=== PATIENT | female | born 1935 | race Caucasian/White ===

== ENCOUNTER 2020-07-11 23:00 | Observation (INO) ==
[2020-07-11] MEDS ORDERED: SODIUM CHLORIDE 0.9% 1000ML 500 ML IV ONE (23:28)
--- NOTE | 2020-07-11 23:35 | Emergency Department Note ---
Impression & Plan Generalized weakness, Lactic acidosis, Rigors ED Provider Note Name: MADI MCCRARY Age: 85 Sex: F Arrives Via: Walk-In Informant: Patient, Daughter ED Provider: Epi Thomas MD Chief Complaint: Weakness Impression: Generalized Weakness Lactic Acidosis Rigors Medical Decision Making: Pleasant 85 yr old female with DMII, HTN, DLP, and mild dementia from out of town arrives for acute generalized weakness. She has associated substernal chest pain (now resolved), rigors, and fatigue. She notes on arrival and multiple evals no abdominal pain and repeat exams without TTP anywhere on abdomen. Chest pain seemed to be around time of rigors and was associated with vomiting once. On my evaluation, she has some some mild generalized weakness/fatigue and a right eyelid drop without facial weakness (attributed to striking self in head with cane yesterday accidentally). Vitals are normal. She is able to ambulate to bathroom with assistance and has no focal weakness. Without headache or other findings no indication for emergent neuro imaging. Wi th reported rigors sepsis work-up started and she was given fluids. Lactic acid elevated thus IV fluids further given. UA returned clear, cxr negative and continued just generalized weakness. COVID testing negative as well. She does appear improved with fluids though given lactic acidosis, along with other symptoms hospitalization seems reasonable. Triage/Nursing Notes reviewed by Me Additional history obtained from daughter Differentials:Infection, dehydration, metabolic abnormality, hypo/hyperglycemia, electrolyte disturbance, anemia, hypoxia, cardiac sources, intracerebral event, toxicologic, neurologic, as well as other pathologies. Vital Signs: reviewed and remarkable for no significant abnormalities Interventions: Saline lock, NSS bolus, Vanco/Cefepime IV Labs:Reviewed and remarkable for Lactic acidosis Imaging:X ray results are stated below per my interpretation: Chest: 1 view: No infiltrate, no effusion, normal cardiac border. EKG:Per My Interpretation: Indication Weakness: NSR 67 bpm, qtc 492, atrial sensed, ventricular paced. No Ectopy. No Ischemia. No previous for comparison Cardiac/Tele Monitoring: Cardiac Monitoring: An Order was placed for continuous cardiac monitoring. The monitor shows a rate of 60 with a normal sinus rhythm. Consults:Dr Anthony LEON Hospitalist Plan: Disposition:Hospitalization. Condition: Good Prescriptions:None PDMP: n/a History of Present Illness:85 yr old female with DMII, HTN, Dyslipidemia, arrives for evaluation of chest pain. Patient notes that she is visiting son and daughter in law for the week from [place]. She was doing well though this afternoon started complaining of exhaustion and weakness. She had several episodes of bilateral leg weakness. She noted that her legs just wouldn't work. This was followed by substernal lower chest pressure. She did vomit once. She also was noted to have shaking and chills. She has been back to normal since the drive in here. Daughter in law denies any focal weakness, slurred speech, syncope, falls, trauma. Patient without fevers, abdominal pain, back pain, urinary symptoms, diarrhea, leg swelling, rashes, headache, neck pain, nor other symptoms. No new medications. Denies cardiac history other than requiring pace maker several years ago. ROS: See above HPI for pertinent positives & negatives. A total of 10 systems reviewed and were otherwise negative. Past Medical History:HTN, DMII, Dyslipidemia, Mild dementia Past Surgical History:Pacemaker, Back Pain Family History:States she doesn't remember Social History:Lives alone, retired, no drugs/etoh/alcohol Home Medications:asa, lipitor, b12, donepezil, zetia, lisinopril, memantine, meformin, multivitamin, vit e Allergies:PNC (unknown) Vitals:Blood Pressure: 140/62, Pulse 70, RR 20, T 36.7C, O2 92% on RA Physical Exam: GENERAL: Patient is tired appearing and in no distress. EYES: No scleral icterus, unremarkable pupils. ENT: Mucous membranes dry, no nasal congestion. NECK: No masses appreciated, nomeningismus, trachea is midline. RESPIRATORY: No dyspnea. Clear to auscultation and equal bilaterally. No wheeze, no rhonchi. CARDIOVASCULAR: Regular rate and rhythm.No murmurs, rubs, gallops appreciated. GASTROINTESTINAL: Abdomen soft, non-tender, no peritonitis.Bowel sounds positive.No masses appreciated. BACK: No midline tenderness, no CVA tenderness EXTREMITIES: Normal motion all extremities, no cyanosis, no edema. NEUROLOGIC: Alert and oriented, no acute motor or sensory deficits, no focal weakness but is generally weak, cranial nerves grossly intact other than slight right eyelid droop (secondary to being hit by her cane accidentally yesterday which is confirmed by daughter) SKIN: No rash, no jaundice, no diaphoresis. PSYCH: Appropriate GCS: 15 ED Course: Times/Reassessments: Multiple, continued weakness though no overt other findings. Able to ambulate to bathroom with assistance, vitals stable. Agreeable to hospitalization Epi Thomas MD Past Med/Surg History Social History Smoking Status: Never smoker Hx Alcohol Use: No Hx Substance Use: No Preferred Language: Ukrainian Communication Ability: Effective Beliefs That Will Affect Care: None Current Living Situation: Alone Other Information That Helps Us Care for You: No Feels Safe at Home: Yes Safety Concerns: Feels Safe At This Time Assistive Devices: Glasses and Walker Allergies Allergies Allergy/AdvReac Type Severity Reaction Status Date / Time Penicillins Allergy Unknown Unknown Verified 07/12/20 00:33 Home Meds Home Medications Medication Instructions Recorded Confirmed aspirin [Aspir-Low] 81 mg PO HS 07/12/20 07/12/20 atorvastatin [Lipitor] 10 mg PO 2XWK 07/12/20 07/12/20 cyanocobalamin (vitamin B-12) 1,000 mcg PO DAILY 07/12/20 07/12/20 [Vitamin B-12] donepezil 10 mg PO HS 07/12/20 07/12/20 ezetimibe [Zetia] 10 mg PO HS 07/12/20 07/12/20 lisinopril 2.5 mg PO HS 07/12/20 07/12/20 memantine 5 mg PO HS 07/12/20 07/12/20 metformin 500 mg PO BID 07/12/20 07/12/20 multivitamin 1 tab PO DAILY 07/12/20 07/12/20 vitamin E [Vitamin E-400] 400 unit PO DAILY 07/12/20 07/12/20 Results & Data (ED) Vital Signs Vital Signs - 24 hr 07/11/20 23:06 07/11/20 23:20 07/11/20 23:45 Temperature 36.7 C Temperature Source Oral Pulse Rate 70 78 81 Pulse Rate [Apical] Pulse Rate from SpO2 Sensor 71 81 Pulse Rhythm [Apical] Pulse Strength [Apical] Respiratory Rate 20 24 25 H Respiratory Effort / Characteristics Non-Labored Spontaneous Respiratory Depth Normal Respiratory Pattern Regular Blood Pressure 140/62 138/62 Blood Pressure [Left Arm] Blood Pressure Mean 88 70 Blood Pressure Mean [Left Arm] Pulse Oximetry 92 98 96 Oxygen Delivery Method Room Air Sepsis Recent Fever Within 48 Hours No Sepsis New/Unexplained Change in Mental Status No Sepsis Action Taken by Nursing No Action Required 07/12/20 00:00 07/12/20 00:30 07/12/20 00:31 Temperature Temperature Source Pulse Rate 88 90 Pulse Rate [Apical] 80 Pulse Rate from SpO2 Sensor 76 83 Pulse Rhythm [Apical] Regular Pulse Strength [Apical] Normal Respiratory Rate 20 24 20 Respiratory Effort / Characteristics Non-Labored Respiratory Depth Normal Respiratory Pattern Blood Pressure 137/66 Blood Pressure [Left Arm] 137/66 Blood Pressure Mean 71 Blood Pressure Mean [Left Arm] 89 Pulse Oximetry 95 98 98 Oxygen Delivery Method Room Air Sepsis Recent Fever Within 48 Hours Sepsis New/Unexplained Change in Mental Status Sepsis Action Taken by Nursing 07/12/20 01:00 07/12/20 01:30 07/12/20 02:00 Temperature Temperature Source Pulse Rate 108 H 97 H 86 Pulse Rate [Apical] Pulse Rate from SpO2 Sensor 92 H 96 H 87 Pulse Rhythm [Apical] Pulse Strength [Apical] Respiratory Rate 20 15 22 Respiratory Effort / Characteristics Respiratory Depth Respiratory Pattern Blood Pressure 151/72 H 135/58 L 130/65 Blood Pressure [Left Arm] Blood Pressure Mean 101 77 80 Blood Pressure Mean [Left Arm] Pulse Oximetry 96 96 97 Oxygen Delivery Method Sepsis Recent Fever Within 48 Hours Sepsis New/Unexplained Change in Mental Status Sepsis Action Taken by Nursing 07/12/20 02:30 07/12/20 03:00 Temperature Temperature Source Pulse Rate 86 92 H Pulse Rate [Apical] Pulse Rate from SpO2 Sensor 85 90 Pulse Rhythm [Apical] Pulse Strength [Apical] Respiratory Rate 20 18 Respiratory Effort / Characteristics Respiratory Depth Respiratory Pattern Blood Pressure 132/59 L 138/66 Blood Pressure [Left Arm] Blood Pressure Mean 81 96 Blood Pressure Mean [Left Arm] Pulse Oximetry 96 99 Oxygen Delivery Method Sepsis Recent Fever Within 48 Hours Sepsis New/Unexplained Change in Mental Status Sepsis Action Taken by Nursing Laboratory Data Result diagrams: 07/11/20 23:25 07/11/20 23:25 Lab Results 07/11/20 07/11/20 07/11/20 Range/Units 23:25 23:25 23:25 WBC 6.46 (4.8-10.8) K/uL RBC 4.44 (4.2-5.4) M/uL Hgb 14.0 (12.0-16.0) g/dL Hct 43.9 (37-47) % MCV 98.9 (80-100) fL MCH 31.5 (25-34) pg MCHC 31.9 L (32-36) g/dL RDW Std Deviation 49.8 H (36.4-46.3) fL RDW Coeff of Maureen 13.8 (11.5-14.5) % Plt Count 231 (130-400) K/uL MPV 10.5 H (7.4-10.4) fL Immature Gran % (Auto) 0.2 % Neut % (Auto) 56.5 % Lymph % (Auto) 32.0 % Jefferson % (Auto) 9.6 % Eos % (Auto) 1.4 % Baso % (Auto) 0.3 % Neut # (Auto) 3.65 (1.4-6.5) K/uL Lymph # (Auto) 2.07 (1.2-3.4) K/uL Jefferson # (Auto) 0.62 H (0.11-0.59) K/uL Eos # (Auto) 0.09 (0-0.5) K/uL Baso # (Auto) 0.02 (0-0.2) K/uL Immature Gran # (Auto) 0.01 (0.00-0.02) K/uL ESR (0-21) mm/hr PT 9.9 (9.0-12.0) Seconds INR 0.9 (0.9-1.1) Sodium 142 (136-145) mmol/L Potassium 3.6 (3.5-5.1) mmol/L Chloride 107 (98-107) mmol/L Carbon Dioxide 28 (21-32) mmol/L Anion Gap 7.0 (3-11) BUN 21 H (7-18) mg/dl Creatinine 0.74 (0.6-1.2) mg/dl Est Cr Clr Drug Dosing 50.9 ml/min Est GFR ( Amer) 86.8 Est GFR (Non-Af Amer) 74.9 BUN/Creatinine Ratio 28.6 H (10-20) Glucose 118 H (70-99) mg/dl Lactate (0.4-2.0) mmol/L Calcium 9.8 (8.5-10.1) mg/dl Phosphorus (2.5-4.9) mg/dl Magnesium 2.3 (1.8-2.4) mg/dl Total Bilirubin 0.5 (0.2-1) mg/dl Direct Bilirubin 0.1 (0-0.2) mg/dl AST 34 (15-37) U/L ALT 16 (12-78) U/L Alkaline Phosphatase 77 (45-117) U/L Total Creatine Kinase 50 (26-192) U/L Troponin I < 0.015 (0-0.045) ng/ml C-Reactive Protein (0-0.29) mg/dl Total Protein 7.6 (6.4-8.2) gm/dl Albumin 3.9 (3.4-5.0) gm/dl Lipase 147 (73-393) U/L Urine Color Urine Appearance (Clear) Urine pH (4.5-7.5) Ur Specific Albers (1.000-1.030) Urine Protein (Negative) Urine Glucose (UA) (Negative) Urine Ketones (Negative) Urine Blood (Negative) Urine Nitrite (Negative) Urine Bilirubin (Negative) Urine Urobilinogen (Negative) Ur Leukocyte Esterase (Negative) COVID-19 Eval Order COVID-19 PCR (Negative) 07/11/20 07/12/20 07/12/20 Range/Units 23:25 00:02 00:02 WBC (4.8-10.8) K/uL RBC (4.2-5.4) M/uL Hgb (12.0-16.0) g/dL Hct (37-47) % MCV (80-100) fL MCH (25-34) pg MCHC (32-36) g/dL RDW Std Deviation (36.4-46.3) fL RDW Coeff of Maureen (11.5-14.5) % Plt Count (130-400) K/uL MPV (7.4-10.4) fL Immature Gran % (Auto) % Neut % (Auto) % Lymph % (Auto) % Jefferson % (Auto) % Eos % (Auto) % Baso % (Auto) % Neut # (Auto) (1.4-6.5) K/uL Lymph # (Auto) (1.2-3.4) K/uL Jefferson # (Auto) (0.11-0.59) K/uL Eos # (Auto) (0-0.5) K/uL Baso # (Auto) (0-0.2) K/uL Immature Gran # (Auto) (0.00-0.02) K/uL ESR 13 (0-21) mm/hr PT (9.0-12.0) Seconds INR (0.9-1.1) Sodium (136-145) mmol/L Potassium (3.5-5.1) mmol/L Chloride (98-107) mmol/L Carbon Dioxide (21-32) mmol/L Anion Gap (3-11) BUN (7-18) mg/dl Creatinine (0.6-1.2) mg/dl Est Cr Clr Drug Dosing ml/min Est GFR ( Amer) Est GFR (Non-Af Amer) BUN/Creatinine Ratio (10-20) Glucose (70-99) mg/dl Lactate 2.5 H* (0.4-2.0) mmol/L Calcium (8.5-10.1) mg/dl Phosphorus 2.8 (2.5-4.9) mg/dl Magnesium (1.8-2.4) mg/dl Total Bilirubin (0.2-1) mg/dl Direct Bilirubin (0-0.2) mg/dl AST (15-37) U/L ALT (12-78) U/L Alkaline Phosphatase (45-117) U/L Total Creatine Kinase (26-192) U/L Troponin I (0-0.045) ng/ml C-Reactive Protein < 0.29 (0-0.29) mg/dl Total Protein (6.4-8.2) gm/dl Albumin (3.4-5.0) gm/dl Lipase (73-393) U/L Urine Color Urine Appearance (Clear) Urine pH (4.5-7.5) Ur Specific Albers (1.000-1.030) Urine Protein (Negative) Urine Glucose (UA) (Negative) Urine Ketones (Negative) Urine Blood (Negative) Urine Nitrite (Negative) Urine Bilirubin (Negative) Urine Urobilinogen (Negative) Ur Leukocyte Esterase (Negative) COVID-19 Eval Order COVID-19 PCR (Negative) 07/12/20 07/12/20 07/12/20 Range/Units 00:20 01:19 01:40 WBC (4.8-10.8) K/uL RBC (4.2-5.4) M/uL Hgb (12.0-16.0) g/dL Hct (37-47) % MCV (80-100) fL MCH (25-34) pg MCHC (32-36) g/dL RDW Std Deviation (36.4-46.3) fL RDW Coeff of Maureen (11.5-14.5) % Plt Count (130-400) K/uL MPV (7.4-10.4) fL Immature Gran % (Auto) % Neut % (Auto) % Lymph % (Auto) % Jefferson % (Auto) % Eos % (Auto) % Baso % (Auto) % Neut # (Auto) (1.4-6.5) K/uL Lymph # (Auto) (1.2-3.4) K/uL Jefferson # (Auto) (0.11-0.59) K/uL Eos # (Auto) (0-0.5) K/uL Baso # (Auto) (0-0.2) K/uL Immature Gran # (Auto) (0.00-0.02) K/uL ESR (0-21) mm/hr PT (9.0-12.0) Seconds INR (0.9-1.1) Sodium (136-145) mmol/L Potassium (3.5-5.1) mmol/L Chloride (98-107) mmol/L Carbon Dioxide (21-32) mmol/L Anion Gap (3-11) BUN (7-18) mg/dl Creatinine (0.6-1.2) mg/dl Est Cr Clr Drug Dosing ml/min Est GFR ( Amer) Est GFR (Non-Af Amer) BUN/Creatinine Ratio (10-20) Glucose (70-99) mg/dl Lactate 2.0 (0.4-2.0) mmol/L Calcium (8.5-10.1) mg/dl Phosphorus (2.5-4.9) mg/dl Magnesium (1.8-2.4) mg/dl Total Bilirubin (0.2-1) mg/dl Direct Bilirubin (0-0.2) mg/dl AST (15-37) U/L ALT (12-78) U/L Alkaline Phosphatase (45-117) U/L Total Creatine Kinase (26-192) U/L Troponin I (0-0.045) ng/ml C-Reactive Protein (0-0.29) mg/dl Total Protein (6.4-8.2) gm/dl Albumin (3.4-5.0) gm/dl Lipase (73-393) U/L Urine Color Dark Yellow Urine Appearance Clear (Clear) Urine pH 7.0 (4.5-7.5) Ur Specific Albers 1.019 (1.000-1.030) Urine Protein Negative (Negative) Urine Glucose (UA) Negative (Negative) Urine Ketones Trace H (Negative) Urine Blood Negative (Negative) Urine Nitrite Negative (Negative) Urine Bilirubin Negative (Negative) Urine Urobilinogen Negative (Negative) Ur Leukocyte Esterase Negative (Negative) COVID-19 Eval Order Covid19 Done at [facility] COVID-19 PCR (Negative) 07/12/20 Range/Units 01:40 WBC (4.8-10.8) K/uL RBC (4.2-5.4) M/uL Hgb (12.0-16.0) g/dL Hct (37-47) % MCV (80-100) fL MCH (25-34) pg MCHC (32-36) g/dL RDW Std Deviation (36.4-46.3) fL RDW Coeff of Maureen (11.5-14.5) % Plt Count (130-400) K/uL MPV (7.4-10.4) fL Immature Gran % (Auto) % Neut % (Auto) % Lymph % (Auto) % Jefferson % (Auto) % Eos % (Auto) % Baso % (Auto) % Neut # (Auto) (1.4-6.5) K/uL Lymph # (Auto) (1.2-3.4) K/uL Jefferson # (Auto) (0.11-0.59) K/uL Eos # (Auto) (0-0.5) K/uL Baso # (Auto) (0-0.2) K/uL Immature Gran # (Auto) (0.00-0.02) K/uL ESR (0-21) mm/hr PT (9.0-12.0) Seconds INR (0.9-1.1) Sodium (136-145) mmol/L Potassium (3.5-5.1) mmol/L Chloride (98-107) mmol/L Carbon Dioxide (21-32) mmol/L Anion Gap (3-11) BUN (7-18) mg/dl Creatinine (0.6-1.2) mg/dl Est Cr Clr Drug Dosing ml/min Est GFR ( Amer) Est GFR (Non-Af Amer) BUN/Creatinine Ratio (10-20) Glucose (70-99) mg/dl Lactate (0.4-2.0) mmol/L Calcium (8.5-10.1) mg/dl Phosphorus (2.5-4.9) mg/dl Magnesium (1.8-2.4) mg/dl Total Bilirubin (0.2-1) mg/dl Direct Bilirubin (0-0.2) mg/dl AST (15-37) U/L ALT (12-78) U/L Alkaline Phosphatase (45-117) U/L Total Creatine Kinase (26-192) U/L Troponin I (0-0.045) ng/ml C-Reactive Protein (0-0.29) mg/dl Total Protein (6.4-8.2) gm/dl Albumin (3.4-5.0) gm/dl Lipase (73-393) U/L Urine Color Urine Appearance (Clear) Urine pH (4.5-7.5) Ur Specific Albers (1.000-1.030) Urine Protein (Negative) Urine Glucose (UA) (Negative) Urine Ketones (Negative) Urine Blood (Negative) Urine Nitrite (Negative) Urine Bilirubin (Negative) Urine Urobilinogen (Negative) Ur Leukocyte Esterase (Negative) COVID-19 Eval Order COVID-19 PCR NEGATIVE (Negative) Administered Medications Discontinued Medications Sodium Chloride (Nss 1000ml) 500 mls @ 999 mls/hr IV .Q31M ONE Stop: 07/11/20 23:58 Last Infusion: 07/12/20 00:21 Dose: 0 mls/hr Documented by: [id number] Admin: 07/11/20 23:43 Dose: 999 mls/hr Documented by: [id number] Sodium Chloride (Nss 1000ml) 1,000 mls @ 999 mls/hr IV .Q1H1M ONE Stop: 07/12/20 01:10 Last Infusion: 07/12/20 01:49 Dose: 0 mls/hr Documented by: [id number] Admin: 07/12/20 00:45 Dose: 999 mls/hr Documented by: [id number] Sodium Chloride (Nss 1000ml) 500 mls @ 999 mls/hr IV .Q31M ONE Stop: 07/12/20 00:40 Last Infusion: 07/12/20 00:45 Dose: 0 mls/hr Documented by: [id number] Admin: 07/12/20 00:21 Dose: 999 mls/hr Documented by: [id number] Cefepime HCl (Maxipime) 2,000 mg in 20 mls @ 5 mls/min IV NOW STA; Protocol Stop: 07/12/20 00:13 Last Admin: 07/12/20 00:24 Dose: 5 mls/min Documented by: [id number] Vancomycin HCl 1,000 mg/ (Sodium Chloride) 520 mls @ 200 mls/hr IV NOW ONE Stop: 07/12/20 02:45 Last Admin: 07/12/20 00:34 Dose: 200 mls/hr Documented by: [id number] Discharge Plan Visit Data Chief Complaint: Abdominal Pain Stated Complaint: CHEST PAIN, VOMIT, WEAKNESS ED Provider: Epi Thomas Discharge Problem: Generalized weakness, Lactic acidosis, Rigors Patient Disposition: Admitted As Inpatient Discharge Instructions Interventions: ED Discharge Assessment Last Done: 07/12/20 03:47
[2020-07-11 23:41] LABS: Basophils # (auto) 0.02 K/uL (0-0.2); Basophils % (auto) 0.3 %; Eosinophils # (auto) 0.09 K/uL (0-0.5); Eosinophils % (auto) 1.4 %; Hematocrit (blood only) 43.9 % (37-47); Immature Granulocytes # (auto) 0.01 K/uL (0.00-0.02); Immature Granulocytes % (auto) 0.2 %; Lymphocytes # (auto) 2.07 K/uL (1.2-3.4); Mean Corpuscular Hemoglobin 31.5 pg (25-34); Mean Corpuscular Hgb Conc 31.9 g/dL (32-36); Mean Corpuscular Volume 98.9 fL (80-100); Mean Platelet Volume 10.5 fL (7.4-10.4); Monocytes # (auto) 0.62 K/uL (0.11-0.59); Monocytes % (auto) 9.6 %; Neutrophils # (auto) 3.65 K/uL (1.4-6.5); Neutrophils % (auto) 56.5 %; Platelet Count 231 K/uL (130-400); RDW Coefficient of Variation 13.8 % (11.5-14.5); RDW Standard Deviation 49.8 fL (36.4-46.3); Red Blood Count 4.44 M/uL (4.2-5.4); White Blood Count 6.46 K/uL (4.8-10.8)
[2020-07-11 23:52] LABS: INR 0.9 (0.9-1.1); Prothrombin Time 9.9 Seconds (9.0-12.0)
[2020-07-12 00:04] LABS: Alanine Aminotransferase 16 U/L (12-78); Albumin Level 3.9 gm/dl (3.4-5.0); Aspartate Aminotransferase 34 U/L (15-37); BUN Creatinine Ratio 28.6 (10-20); Bilirubin Direct 0.1 mg/dl (0-0.2); Blood Urea Nitrogen 21 mg/dl (7-18); Calcium 9.8 mg/dl (8.5-10.1); Carbon Dioxide 28 mmol/L (21-32); Chloride 107 mmol/L (98-107); Creatinine Clr Calc Pharmacy 50.9 ml/min; Est GFR (African American) 86.8; Est GFR (Non-African American) 74.9; Glucose 118 mg/dl (70-99); Lipase 147 U/L (73-393); Magnesium 2.3 mg/dl (1.8-2.4); Potassium 3.6 mmol/L (3.5-5.1); Sodium 142 mmol/L (136-145)
[2020-07-12 00:07] LABS: Alkaline Phosphatase 77 U/L (45-117); Bilirubin,Total 0.5 mg/dl (0.2-1); Creatine Kinase 50 U/L (26-192); Total Protein 7.6 gm/dl (6.4-8.2); Troponin I < 0.015 ng/ml (0-0.045)
[2020-07-12] MEDS ORDERED: CEFEPIME 2,000 MG/20 ML VIAL IV STA (00:10)
[2020-07-12] MEDS ORDERED: VANCOMYCIN HCL 1,000 MG in SODIUM CHLORIDE 0.9% 500 ML IV ONE (00:10)
[2020-07-12] MEDS ORDERED: SODIUM CHLORIDE 0.9% 1000ML 500 ML IV ONE (00:10)
[2020-07-12] MEDS ORDERED: SODIUM CHLORIDE 0.9% 1000ML 1,000 ML IV ONE (00:10)
[2020-07-12] MEDS ORDERED: VANCOMYCIN CONSULT ACTIVE PRN (00:10)
[2020-07-12 00:45] LABS: Appearance Urine Clear (Clear); Bilirubin Urine Negative (Negative); Blood Urine Negative (Negative); Color Urine Dark Yellow; Glucose Urine UA Negative (Negative); Ketones Urine Trace (Negative); Leukocyte Esterase Urine Negative (Negative); Nitrite Urine Negative (Negative); Protein Urine Negative (Negative); Specific Gravity Urine 1.019 (1.000-1.030); Urobilinogen Urine Negative (Negative)
--- NOTE | 2020-07-12 03:17 | History & Physical Report ---
Date of Service July 12, 2020 Assessment & Plan (1) Generalized weakness: Etiology uncertain. No focal weakness or deficits noted on exam. Electrolytes and ESR/CRP WNL. Patient currently afebrile, HD stable, non-toxic in appearance. Symptoms have resolved. -Continue gentle IV hydration Present on Admission?: Yes (2) Hyperlipidemia: Chronic. -Continue Atorvastatin and Ezetimibe Present on Admission?: Yes (3) Diabetes: Chronic. Stable -Hold oral agents while inpatient. ?if Metformin + mild volume contraction contributed to elevated lactic acid -ISS -Goal blood sugar 100 - 140 Present on Admission?: Yes (4) Hypertension: Blood pressure favorable -Continue Lisinopril -Continue to monitor Present on Admission?: Yes (5) Lactic acidosis: Patient with mildly elevated lactic acid level of 2.5 on arrival + abdominal pain. Lactate has improved to 2 after IVF. She is afebrile, HD stable and non-toxic in appearance at present. She received 3L NSS in the ER as well as empiric antibiotics -Continue fluids as above. -Follow culture results -Will hold off on additional antibiotics at this time Present on Admission?: Yes (6) Abdominal pain: Very mild LLQ abdominal pain. If pain persists or worsens would pursue additional imaging F/E/N - LR at 80mL/hr x 1 L, electrolytes WNL, CC/AHA diet as tolerated Ppx - Low risk for DVT Code - Full Dispo - Observation to medical Present on Admission?: Yes History of Present Illness Chief Complaint: weakness, epigastric discomfort Primary Care Provider: MIMA TELLEZ LAZAROGISSELLE Lorrie Bee is a pleasant 85yo female with history of HTN, DM, HLP presenting with epigastric discomfort, nausea/vomiting, rigors and weakness. The patient resides in [place], [place] and sees a PCP regularly there. She is currently visiting her daughter. She had some mild leg weakness earlier today. However, this evening around 22:00 she developed epigastric discomfort as well as worsening weakness, nausea/vomiting and rigors. No additional complaints at this time. Her pain has resolved. Some mild left sided abdominal pain persists. ER Course: Cefepime, Vancomycin, NSS x 2l Allergies Allergy/AdvReac Type Severity Reaction Status Date / Time Penicillins Allergy Unknown Unknown Verified 07/12/20 00:33 Home Medications Home Medications Medication Instructions Recorded Confirmed Type aspirin [Aspir-Low] 81 mg PO HS 10/20/20 10/20/20 History atorvastatin [Lipitor] 10 mg PO 2XWK 07/12/20 07/12/20 History cyanocobalamin (vitamin B-12) 1,000 mcg PO DAILY 07/12/20 07/12/20 History [Vitamin B-12] donepezil 10 mg PO HS 07/12/20 07/12/20 History ezetimibe [Zetia] 10 mg PO HS 07/12/20 07/12/20 History lisinopril 2.5 mg PO HS 07/12/20 07/12/20 History memantine 5 mg PO HS 07/12/20 07/12/20 History metformin 500 mg PO BID 07/12/20 07/12/20 History multivitamin 1 tab PO DAILY 07/12/20 07/12/20 History vitamin E [Vitamin E-400] 400 unit PO DAILY 07/12/20 07/12/20 History Past Med/Surg History Medical History (Updated 07/12/20 @ 05:59 by Cristela Cruz DO) Diabetes History of pacemaker Hyperlipidemia Hypertension Family History (Updated 07/12/20 @ 05:46 by Cristela Cruz DO) Other Family history non-contributory Social History Smoking Status: Never smoker Hx Alcohol Use: No Hx Substance Use: No Preferred Language: Martiniquais Communication Ability: Effective Beliefs That Will Affect Care: None Current Living Situation: Alone Other Information That Helps Us Care for You: No Feels Safe at Home: Yes Safety Concerns: Feels Safe At This Time Assistive Devices: Glasses and Walker Review of Systems Review of Systems: All systems reviewed & are unremarkable except as noted in HPI & below Physical Exam Physical Exam: General: patient resting comfortably, NAD, non-toxic in appearance, AA&O x 4 Skin: warm, dry, intact, no rashes or lesions HEENT: NC/AT, PERRL, EOMI, anicteric sclera, conjunctiva without injection, external ear normal to inspection and nontender, nares patent, moist mucus membranes, dentition intact, no oropharyngeal lesions, neck supple, trachea midline, no LAD, no thyromegaly, no JVD Heart: +S1/S2, regular, no m/r/g Lungs: equal air entry bilaterally, no rales/rhonchi/wheezes Abd: +BS, soft, ND, mild LLE discomfort with deep palpation without rebound/guarding/peritoneal signs, no masses/organomegaly/ascites Ext: warm, 2+ pulses in UE/LE bilaterally, no clubbing/cyanosis or edema Neuro: nonfocal, patient AA&O x 4, speech intact, no facial droop, moving all extremities on command with equal strength 5/5 Results & Data Results & Data ([facility]) Vital Signs (Past 12 Hours) Vital Signs Temp Pulse Pulse Resp BP BP Pulse Ox 07/12/20 03:00 92 H 18 138/66 99 07/12/20 02:30 86 20 132/59 L 96 07/12/20 02:00 86 22 130/65 97 07/12/20 01:30 97 H 15 135/58 L 96 07/12/20 01:00 108 H 20 151/72 H 96 07/12/20 00:31 80 20 137/66 98 07/12/20 00:30 90 24 137/66 98 07/12/20 00:00 88 20 95 07/11/20 23:45 81 25 H 96 07/11/20 23:20 78 24 138/62 98 07/11/20 23:06 36.7 C 70 20 140/62 92 Laboratory Results Lab Results 07/11/20 07/11/20 07/11/20 Range/Units 23:25 23:25 23:25 WBC 6.46 (4.8-10.8) K/uL RBC 4.44 (4.2-5.4) M/uL Hgb 14.0 (12.0-16.0) g/dL Hct 43.9 (37-47) % MCV 98.9 (80-100) fL MCH 31.5 (25-34) pg MCHC 31.9 L (32-36) g/dL RDW Std Deviation 49.8 H (36.4-46.3) fL RDW Coeff of Maureen 13.8 (11.5-14.5) % Plt Count 231 (130-400) K/uL MPV 10.5 H (7.4-10.4) fL Immature Gran % (Auto) 0.2 % Neut % (Auto) 56.5 % Lymph % (Auto) 32.0 % [place] % (Auto) 9.6 % Eos % (Auto) 1.4 % Baso % (Auto) 0.3 % Neut # (Auto) 3.65 (1.4-6.5) K/uL Lymph # (Auto) 2.07 (1.2-3.4) K/uL [place] # (Auto) 0.62 H (0.11-0.59) K/uL Eos # (Auto) 0.09 (0-0.5) K/uL Baso # (Auto) 0.02 (0-0.2) K/uL Immature Gran # (Auto) 0.01 (0.00-0.02) K/uL ESR (0-21) mm/hr PT 9.9 (9.0-12.0) Seconds INR 0.9 (0.9-1.1) Sodium 142 (136-145) mmol/L Potassium 3.6 (3.5-5.1) mmol/L Chloride 107 (98-107) mmol/L Carbon Dioxide 28 (21-32) mmol/L Anion Gap 7.0 (3-11) BUN 21 H (7-18) mg/dl Creatinine 0.74 (0.6-1.2) mg/dl Est Cr Clr Drug Dosing 50.9 ml/min Est GFR ( Amer) 86.8 Est GFR (Non-Af Amer) 74.9 BUN/Creatinine Ratio 28.6 H (10-20) Glucose 118 H (70-99) mg/dl Lactate (0.4-2.0) mmol/L Calcium 9.8 (8.5-10.1) mg/dl Phosphorus (2.5-4.9) mg/dl Magnesium 2.3 (1.8-2.4) mg/dl Total Bilirubin 0.5 (0.2-1) mg/dl Direct Bilirubin 0.1 (0-0.2) mg/dl AST 34 (15-37) U/L ALT 16 (12-78) U/L Alkaline Phosphatase 77 (45-117) U/L Total Creatine Kinase 50 (26-192) U/L Troponin I < 0.015 (0-0.045) ng/ml C-Reactive Protein (0-0.29) mg/dl Total Protein 7.6 (6.4-8.2) gm/dl Albumin 3.9 (3.4-5.0) gm/dl Lipase 147 (73-393) U/L Urine Color Urine Appearance (Clear) Urine pH (4.5-7.5) Ur Specific Kiester (1.000-1.030) Urine Protein (Negative) Urine Glucose (UA) (Negative) Urine Ketones (Negative) Urine Blood (Negative) Urine Nitrite (Negative) Urine Bilirubin (Negative) Urine Urobilinogen (Negative) Ur Leukocyte Esterase (Negative) COVID-19 Eval Order COVID-19 PCR (Negative) 07/11/20 07/12/20 07/12/20 Range/Units 23:25 00:02 00:02 WBC (4.8-10.8) K/uL RBC (4.2-5.4) M/uL Hgb (12.0-16.0) g/dL Hct (37-47) % MCV (80-100) fL MCH (25-34) pg MCHC (32-36) g/dL RDW Std Deviation (36.4-46.3) fL RDW Coeff of Maureen (11.5-14.5) % Plt Count (130-400) K/uL MPV (7.4-10.4) fL Immature Gran % (Auto) % Neut % (Auto) % Lymph % (Auto) % [place] % (Auto) % Eos % (Auto) % Baso % (Auto) % Neut # (Auto) (1.4-6.5) K/uL Lymph # (Auto) (1.2-3.4) K/uL [place] # (Auto) (0.11-0.59) K/uL Eos # (Auto) (0-0.5) K/uL Baso # (Auto) (0-0.2) K/uL Immature Gran # (Auto) (0.00-0.02) K/uL ESR 13 (0-21) mm/hr PT (9.0-12.0) Seconds INR (0.9-1.1) Sodium (136-145) mmol/L Potassium (3.5-5.1) mmol/L Chloride (98-107) mmol/L Carbon Dioxide (21-32) mmol/L Anion Gap (3-11) BUN (7-18) mg/dl Creatinine (0.6-1.2) mg/dl Est Cr Clr Drug Dosing ml/min Est GFR ( Amer) Est GFR (Non-Af Amer) BUN/Creatinine Ratio (10-20) Glucose (70-99) mg/dl Lactate 2.5 H* (0.4-2.0) mmol/L Calcium (8.5-10.1) mg/dl Phosphorus 2.8 (2.5-4.9) mg/dl Magnesium (1.8-2.4) mg/dl Total Bilirubin (0.2-1) mg/dl Direct Bilirubin (0-0.2) mg/dl AST (15-37) U/L ALT (12-78) U/L Alkaline Phosphatase (45-117) U/L Total Creatine Kinase (26-192) U/L Troponin I (0-0.045) ng/ml C-Reactive Protein < 0.29 (0-0.29) mg/dl Total Protein (6.4-8.2) gm/dl Albumin (3.4-5.0) gm/dl Lipase (73-393) U/L Urine Color Urine Appearance (Clear) Urine pH (4.5-7.5) Ur Specific Kiester (1.000-1.030) Urine Protein (Negative) Urine Glucose (UA) (Negative) Urine Ketones (Negative) Urine Blood (Negative) Urine Nitrite (Negative) Urine Bilirubin (Negative) Urine Urobilinogen (Negative) Ur Leukocyte Esterase (Negative) COVID-19 Eval Order COVID-19 PCR (Negative) 07/12/20 07/12/20 07/12/20 Range/Units 00:20 01:19 01:40 WBC (4.8-10.8) K/uL RBC (4.2-5.4) M/uL Hgb (12.0-16.0) g/dL Hct (37-47) % MCV (80-100) fL MCH (25-34) pg MCHC (32-36) g/dL RDW Std Deviation (36.4-46.3) fL RDW Coeff of Maureen (11.5-14.5) % Plt Count (130-400) K/uL MPV (7.4-10.4) fL Immature Gran % (Auto) % Neut % (Auto) % Lymph % (Auto) % [place] % (Auto) % Eos % (Auto) % Baso % (Auto) % Neut # (Auto) (1.4-6.5) K/uL Lymph # (Auto) (1.2-3.4) K/uL [place] # (Auto) (0.11-0.59) K/uL Eos # (Auto) (0-0.5) K/uL Baso # (Auto) (0-0.2) K/uL Immature Gran # (Auto) (0.00-0.02) K/uL ESR (0-21) mm/hr PT (9.0-12.0) Seconds INR (0.9-1.1) Sodium (136-145) mmol/L Potassium (3.5-5.1) mmol/L Chloride (98-107) mmol/L Carbon Dioxide (21-32) mmol/L Anion Gap (3-11) BUN (7-18) mg/dl Creatinine (0.6-1.2) mg/dl Est Cr Clr Drug Dosing ml/min Est GFR ( Amer) Est GFR (Non-Af Amer) BUN/Creatinine Ratio (10-20) Glucose (70-99) mg/dl Lactate 2.0 (0.4-2.0) mmol/L Calcium (8.5-10.1) mg/dl Phosphorus (2.5-4.9) mg/dl Magnesium (1.8-2.4) mg/dl Total Bilirubin (0.2-1) mg/dl Direct Bilirubin (0-0.2) mg/dl AST (15-37) U/L ALT (12-78) U/L Alkaline Phosphatase (45-117) U/L Total Creatine Kinase (26-192) U/L Troponin I (0-0.045) ng/ml C-Reactive Protein (0-0.29) mg/dl Total Protein (6.4-8.2) gm/dl Albumin (3.4-5.0) gm/dl Lipase (73-393) U/L Urine Color Dark Yellow Urine Appearance Clear (Clear) Urine pH 7.0 (4.5-7.5) Ur Specific Kiester 1.019 (1.000-1.030) Urine Protein Negative (Negative) Urine Glucose (UA) Negative (Negative) Urine Ketones Trace H (Negative) Urine Blood Negative (Negative) Urine Nitrite Negative (Negative) Urine Bilirubin Negative (Negative) Urine Urobilinogen Negative (Negative) Ur Leukocyte Esterase Negative (Negative) COVID-19 Eval Order Covid19 Done at [facility] COVID-19 PCR (Negative) 07/12/20 Range/Units 01:40 WBC (4.8-10.8) K/uL RBC (4.2-5.4) M/uL Hgb (12.0-16.0) g/dL Hct (37-47) % MCV (80-100) fL MCH (25-34) pg MCHC (32-36) g/dL RDW Std Deviation (36.4-46.3) fL RDW Coeff of Maureen (11.5-14.5) % Plt Count (130-400) K/uL MPV (7.4-10.4) fL Immature Gran % (Auto) % Neut % (Auto) % Lymph % (Auto) % [place] % (Auto) % Eos % (Auto) % Baso % (Auto) % Neut # (Auto) (1.4-6.5) K/uL Lymph # (Auto) (1.2-3.4) K/uL [place] # (Auto) (0.11-0.59) K/uL Eos # (Auto) (0-0.5) K/uL Baso # (Auto) (0-0.2) K/uL Immature Gran # (Auto) (0.00-0.02) K/uL ESR (0-21) mm/hr PT (9.0-12.0) Seconds INR (0.9-1.1) Sodium (136-145) mmol/L Potassium (3.5-5.1) mmol/L Chloride (98-107) mmol/L Carbon Dioxide (21-32) mmol/L Anion Gap (3-11) BUN (7-18) mg/dl Creatinine (0.6-1.2) mg/dl Est Cr Clr Drug Dosing ml/min Est GFR ( Amer) Est GFR (Non-Af Amer) BUN/Creatinine Ratio (10-20) Glucose (70-99) mg/dl Lactate (0.4-2.0) mmol/L Calcium (8.5-10.1) mg/dl Phosphorus (2.5-4.9) mg/dl Magnesium (1.8-2.4) mg/dl Total Bilirubin (0.2-1) mg/dl Direct Bilirubin (0-0.2) mg/dl AST (15-37) U/L ALT (12-78) U/L Alkaline Phosphatase (45-117) U/L Total Creatine Kinase (26-192) U/L Troponin I (0-0.045) ng/ml C-Reactive Protein (0-0.29) mg/dl Total Protein (6.4-8.2) gm/dl Albumin (3.4-5.0) gm/dl Lipase (73-393) U/L Urine Color Urine Appearance (Clear) Urine pH (4.5-7.5) Ur Specific Kiester (1.000-1.030) Urine Protein (Negative) Urine Glucose (UA) (Negative) Urine Ketones (Negative) Urine Blood (Negative) Urine Nitrite (Negative) Urine Bilirubin (Negative) Urine Urobilinogen (Negative) Ur Leukocyte Esterase (Negative) COVID-19 Eval Order COVID-19 PCR NEGATIVE (Negative) Code Status & VTE Plan Code Status FULL VTE Prophylaxis Plan VTE Prophylaxis will be ordered: Yes PG Care Time/CCT Total # of Minutes Spent Total Time Spent with Patient: Total time spent is greater than 50% in coordination of care (as documented) at patient's floor/unit and/or counseling patient: Coding Level of Care Code 07665 OBS Care - Level 3 Diagnoses Generalized weakness R53.1 Hyperlipidemia E78.5 Hyperlipidemia type: unspecified Diabetes E11.9 Diabetes mellitus type: type 2 Diabetes mellitus terminal make up operator insulin use: without terminal make up operator use Diabetes mellitus complication status: without complication Hypertension I10 Hypertension type: essential hypertension Lactic acidosis E87.2 Abdominal pain R10.30 Abdominal location: lower abdomen, unspecified (1) Hyperlipidemia Hyperlipidemia type: unspecified Qualified Code(s): E78.5 - Hyperlipidemia, unspecified (2) Diabetes Diabetes mellitus type: type 2 Diabetes mellitus terminal make up operator insulin use: without terminal make up operator use Diabetes mellitus complication status: without complication Qualified Code(s): E11.9 - Type 2 diabetes mellitus without complications (3) Hypertension Hypertension type: essential hypertension Qualified Code(s): I10 - Essential (primary) hypertension (4) Abdominal pain Abdominal location: lower abdomen, unspecified Qualified Code(s): R10.30 - Lower abdominal pain, unspecified
[2020-07-12] MEDS ORDERED: GLUCAGON FOR INJ 1 MG VIAL SQ PRN (04:09)
[2020-07-12] MEDS ORDERED: ONDANSETRON INJ 2 MG/ML 2 ML VIAL IV PRN (04:09)
[2020-07-12] MEDS ORDERED: GLUCOSE 40% GEL 15 GM TUBE PO PRN (04:09)
[2020-07-12] MEDS ORDERED: DEXTROSE 50% 50 ML SYRINGE IV PRN (04:09)
[2020-07-12] MEDS ORDERED: GLUCOSE 10 TABS/TUBE PO PRN (04:09)
[2020-07-12] MEDS ORDERED: CARBOHYDRATES FOR HYPOGLYCEMIA PO PRN (04:09)
[2020-07-12] MEDS ORDERED: LACTATED RINGER'S 1,000 ML IV SCH (04:09)
[2020-07-12] MEDS ORDERED: ACETAMINOPHEN 325 MG TAB PO PRN (04:09)
[2020-07-12 04:30] LABS: C Reactive Protein < 0.29 mg/dl (0-0.29); Phosphorus 2.8 mg/dl (2.5-4.9)
--- NOTE | 2020-07-12 07:26 | XRay Report ---
XR chest 1V portable CLINICAL HISTORY: sepsis COMPARISON STUDY: No previous studies for comparison. FINDINGS: There is a left subclavian dual-chamber central venous pacemaker present. The cardiac and m ediastinal contours are normal. There is no focal pulmonary consolidation. There is no failure. There are no pleural effusions. There is no pneumothorax.[ IMPRESSION: No active disease in the chest. ACT 112: Negative or not required by law. Electronically signed by: Terry Linares M.D. 07/12/2020 7:25 AM
[2020-07-12] MEDS: INSULIN ASPART 100 UNITS/ML 3 ML PEN SC SCH ×2 (09:14→13:22)
--- NOTE | 2020-07-12 09:50 | Electrocardiogram Report ---
Test Reason : Blood Pressure : / mmHG Vent. Rate : 067 BPM Atrial Rate : 067 BPM P-R Int : 174 ms QRS Dur : 150 ms QT Int : 466 ms P-R-T Axes : 059 099 058 degrees QTc Int : 492 ms Poor data quality, interpretation may be adversely affected Atrial-sensed ventricular-paced rhythm Abnormal ECG No previous ECGs available Confirmed by Sudheer Almanzar ([id number]) on 07/12/2020 9:50:13 AM Referred By: REFERRED SELF Confirmed By:Sudheer Almanzar
--- NOTE | 2020-07-12 17:03 | Discharge Summary ---
Date of Service July 12, 2020 Admission HPI Per Admitting Provider Lorrie Bee is a pleasant 85yo female with history of HTN, DM, HLD presenting with epigastric discomfort, nausea/vomiting, rigors and weakness. The patient resides in [place], [place] and sees a PCP regularly there. She is currently visiting her daughter. She had some mild leg weakness earlier today. However, this evening around 22:00 she developed epigastric discomfort as well as worsening weakness, nausea/vomiting and rigors. No additional complaints at this time. Her pain has resolved. Some mild left sided abdominal pain persists. ER Course: Cefepime, Vancomycin, NSS x 2l Admission Exam Per Admitting Provider General: patient resting comfortably, NAD, non-toxic in appearance, AA&O x 4 Skin: warm, dry, intact, no rashes or lesions HEENT: NC/AT, PERRL, EOMI, anicteric sclera, conjunctiva without injection, external ear normal to inspection and nontender, nares patent, moist mucus membranes, dentition intact, no oropharyngeal lesions, neck supple, trachea midline, no LAD, no thyromegaly, no JVD Heart: +S1/S2, regular, no m/r/g Lungs: equal air entry bilaterally, no rales/rhonchi/wheezes Abd: +BS, soft, ND, mild LLE discomfort with deep palpation without rebound/guarding/peritoneal signs, no masses/organomegaly/ascites Ext: warm, 2+ pulses in UE/LE bilaterally, no clubbing/cyanosis or edema Neuro: nonfocal, patient AA&O x 4, speech intact, no facial droop, moving all extremities on command with equal strength 5/5 Principal Diagnosis gastritis Discharge Exam Constitutional well developed and + thin; no acute distress Eyes PERRL, conjunctivae normal, anicteric sclerae ENMT external ear and nose normal, oropharynx normal Respiratory normal respiratory effort, lungs clear to auscultation Cardiovascular RRR, no murmur, no edema Gastrointestinal (Abdomen) normal bowel sounds, soft, nontender, no hepatosplenomegaly Musculoskeletal no cyanosis or clubbing Skin no rashes, warm and dry Psychiatric A+Ox3, euthymic affect forgetful of things such as her meals yesterday, and does not recall having symptoms yesterday Discharge Data Allergies Allergy/AdvReac Type Severity Reaction Status Date / Time Penicillins Allergy Unknown Unknown Verified 07/12/20 00:33 Consultations 07/12/20 01:05 ED Decision to Admit Stat Hospital Course (1) Abdominal pain: 85 yo F PMHx symptomatic bradycardia s/p pacemaker, HTN, DM2, HLD, dementia admitted for continued evaluation of abdominal pain, weakness, and vomiting per family. Abdominal pain/vomiting: Likely sec to ? viral gastritis - Per family patient had episode of vomiting yesterday after having fish tacos with some salsa, some cookies, and a hot chocolate. - Evaluation on site including LFTs, renal function, lipase, troponin x2, urinalysis, all normal. - Initial lactate 2.5 on admission in the setting of suspected dehydration from vomiting and poor eating at home. - Per family patient forgets to eat when she is at home by herself. They have been trying to get her to move in with them for some time. - Returned to normal level after several fluid boluses. - No leukocytosis, no electrolyte abnormalities. - CXR negative for pneumonia. - This AM without complaints of abdominal pain or nausea, and walked without assistance from nursing staff with a walker this AM. - Was urged to walk with walker at home, and also urged to seek help from her family regarding her care moving forward. DM2: - Continue metformin 500mg BID. HLD: - Continue atorvastatin twice weekly. HTN: - Continue lisinopril 2.5mg daily. Dementia: - Continue donepezil. Dispo: to son and [id number] home for care following discharge (2) Hyperlipidemia: (3) Diabetes: (4) Hypertension: (5) Dementia: Total Time Total Time Spent Total Time Spent (In Minutes): see attending attestation Discharge Plan Discharge Items Patient Disposition: Home - Self-Care Reason For Visit: WEAKNESS Discharge Diagnosis: abdominal pain and nausea Activity: Per Instructions section Non-emergency contact: Primary Care Provider Call non-emergency contact if: your symptoms worsen and your temperature is above 101 Follow-up/Referrals: Michael Gee DO [Primary Care Provider] - Diet: Carb Consistent or DM2 and Heart Healthy Addtl Attending Provider Instructions: You were admitted to the hospital for abdominal pain and nausea. You had labwork which showed that your pancreas and liver enzymes were normal. Your white blood cell count (your infection fighting cells) were normal, and your urine did not show signs of infection. You did not have signs on chest xray of pneumonia. Your heart enzymes were normal. You did not have any symptoms in the morning and you were felt to be safe for discharge home. If you have chest pain, shortness of breath, your abdominal pain and vomiting come back, or you have fevers over 100.4, please seek urgent medical attention. Pending Studies at Discharge: No Stand-Alone Forms: My [facility], Smoking Cessation Medications and DC Order Prescriptions: Continued multivitamin Tablet 1 tab PO DAILY RF: 0 metformin 500 mg Tablet 500 mg PO BID RF: 0 donepezil 10 mg Tablet 10 mg PO HS RF: 0 aspirin 81 mg Tablet,Delayed Release (Dr/Ec) 81 mg PO HS RF: 0 lisinopril 2.5 mg Tablet 2.5 mg PO HS RF: 0 ezetimibe [Zetia] 10 mg Tablet 10 mg PO HS RF: 0 memantine 5 mg Tablet 5 mg PO HS RF: 0 atorvastatin [Lipitor] 10 mg Tablet 10 mg PO 2XWK RF: 0 cyanocobalamin (vitamin B-12) [Vitamin B-12] 1,000 mcg Tablet 1,000 mcg PO DAILY RF: 0 vitamin E 400 unit Capsule 400 unit PO DAILY RF: 0 Discharge Orders: Discharge Order (Routine); Ordered 07/12/20 Ordered By: Teresita Russell/Other Patient Handouts: High Blood Sugar (Hyperglycemia), Hypoglycemia (Low Blood Sugar), Managing Type 2 Diabetes Admission Data Admit Date/Time: 07/12/20 03:16 Attending Provider: Mahogany Benjamin Admit Provider: Cristela Cruz Primary Care Provider: Michael Gee Other Providers: Cristela Cruz Other Interventions: Discharge Summary Assessment (RN) Last Done: 07/12/20 18:32 Supervising Physician Co-Signing Physician Notes Resident Physician Supervision Note: I independently interviewed and examined the patient and verified the pedersen history and physical, reviewed labs and image studies, discussed the case with the resident Dr. Pandey and agree with the findings and care plan. Resident Activity Tracking Resident Involvement: Resident Care Provided Care Provided: Adult Hospital Medicine
[2020-07-12] MEDS ORDERED: MEMANTINE HCL 5 MG TAB PO SCH (21:00)
[2020-07-12] MEDS ORDERED: EZETIMIBE 10 MG TABLET PO SCH (21:00)
[2020-07-12] MEDS ORDERED: lisinopril 2.5 MG TAB PO SCH (21:00)
[2020-07-12] MEDS ORDERED: DONEPEZIL HCL 10 MG TAB PO SCH (21:00)
[2020-07-12] MEDS ORDERED: ASPIRIN 81 MG ECTAB PO SCH (21:00)
[2020-07-14] MEDS ORDERED: ATORVASTATIN 10 MG TAB PO SCH (17:00)
== END 2020-07-12 18:38 | disposition home or self-care (01) ==
LOC: ED 23:00 → 3E 23:00 → SUATTDRO 07-12 03:16 → 3E 07-12 03:47